=== PATIENT | male | born 1985 | race African-American/Black ===

== ENCOUNTER 2018-08-28 11:10 | Emergency (ER) | payer MEDICAID, OTHER ==
[~2018-08-28] VITALS: Ht 182.9 cm; Wt 95.3 kg
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
[2018-08-28 11:14] VITALS: BP 135/99
--- NOTE | 2018-08-28 11:55 | NUR ---
ED Nurse Note: Notified radiology of Xray orders.
--- NOTE | 2018-08-28 13:13 | NUR ---
ED Nurse Note: Pt went down to radiology.
[2018-08-28 13:55] VITALS: BP 130/98
--- NOTE | 2018-08-28 14:02 | NUR ---
Kei dumont in EDM - 08/28/18 at 1403 by TREMAYNE ED Note: Pt back from xray.
[2018-08-28] MEDS ORDERED: Ketorolac 30mg Inj IM ONE (14:30)
[2018-08-28] MEDS ORDERED: HYDROcodone/Acetamin 5/325 tab ORAL ONE (14:30)
--- NOTE | 2018-08-28 14:45 | NUR ---
ER DISCHARGE NOTE: Patient is cleared to be discharged per ERMD, pt is aox4, on room air, accompanied by secretary of police #[id number], with stable vital signs. pt was given dc instructions, denied pain, pt was able to verbalize understanding, pt id band removed. pt was carried by police officers with handcuff and with steady gait. pt took all belongings.
--- NOTE | 2018-08-28 15:02 | Diagnostic Imaging Report ---
Indication: Pain right ankle ankle pain/trauma Comparison: None Findings: 3 views of the right ankle obtained. No acute fracture, malalignment, periostitis, or osteochondral defects are identified. Soft tissues are unremarkable. Impression: Negative examination
--- NOTE | 2018-08-28 15:03 | Diagnostic Imaging Report ---
Indication: left ankle pain Comparison: None Findings: 3 views of the left ankle obtained. No acute fracture, malalignment, periostitis, or osteochondral defects are identified. Soft tissues are unremarkable. Impression: No acute findings
--- NOTE | 2018-08-28 15:03 | Diagnostic Imaging Report ---
Indication: Left leg pain Comparison: None Findings: Two views of the left tibia and fibula were obtained. No acute fracture, malalignment, or periosteal reaction are identified. Soft tissues are unremarkable. Impression: No acute injury.
--- NOTE | 2018-08-28 15:04 | Diagnostic Imaging Report ---
Indication: Left thigh pain Comparison: None Findings: 2 views of the left femur were obtained. No acute fractures, malalignment, erosions or periostitis are identified. Soft tissues are unremarkable. Impression: Negative examination of the femur
--- NOTE | 2018-08-28 15:04 | Diagnostic Imaging Report ---
Indication: Pain Thigh pain Findings: 2 views of the right femur were obtained. No acute fractures, malalignment, erosions or periostitis are identified. Soft tissues are unremarkable. Impression: Negative examination of the femur
--- NOTE | 2018-08-28 15:04 | Diagnostic Imaging Report ---
Indication: right leg pain Comparison: None Findings: Two views of the right tibia and fibula were obtained. No acute fracture, malalignment, or periosteal reaction are identified. Soft tissues are unremarkable. Impression: Negative examination of the tibia and fibula
[2018-08-28 15:07] VITALS: BP 126/88
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
== END 2018-08-28 14:45 ==
LOC: EDBD 11:10 → EMR 11:58
DX: M79.605 Pain in left leg (principal); M79.604 Pain in right leg; F31.9 Bipolar disorder, unspecified
CPT/HCPCS: 73552; 73590; 73610; 96372; 99284; J1885